=== PATIENT | female | born 1990 ===

== ENCOUNTER 2016-12-28 09:17 | Outpatient (CLI) | payer BC, MEDICAID ==
[~2016-12-28] VITALS: Ht 160 cm; Wt 57.7 kg
[2016-12-28 09:31] VITALS: BP 135/95; PULSE 95; TEMP 98.3
[2016-12-28] MEDS ORDERED: PRENATAL MVI (09:55)
[2016-12-28 10:00] VITALS: BP 138/90; PULSE 71; TEMP 98.3
[2016-12-28 10:30] VITALS: BP 124/84; PULSE 76
[2016-12-28 11:30] VITALS: BP 140/90; PULSE 82
[2016-12-28 12:30] VITALS: BP 116/75; PULSE 94
== END 2016-12-28 13:15 | disposition home or self-care (01) ==
LOC: LDRO 09:17
DX: O47.9 False labor, unspecified (principal)

== ENCOUNTER 2016-12-30 11:04 | Outpatient (CLI) | payer BC, MEDICAID ==
[~2016-12-30] VITALS: Ht 160 cm; Wt 57.7 kg
[~2016-12-30 11:04] MED LIST: PRENATAL MVI
[2016-12-30 11:10] VITALS: BP 125/82; PULSE 83; TEMP 98.1
[2016-12-30 11:14] VITALS: BP 125/82; PULSE 83; TEMP 98.1
[2016-12-30 12:15] VITALS: BP 118/85; PULSE 83
== END 2016-12-30 12:15 | disposition home or self-care (01) ==
LOC: LDRO 11:04
DX: Z34.03 Encounter for supervision of normal first pregnancy, third trimester (principal); Z3A.40 40 weeks gestation of pregnancy

== ENCOUNTER 2016-12-31 03:51 | Inpatient (IN) | payer BC, MEDICAID, OTHER ==
[~2016-12-31] VITALS: Ht 160 cm; Wt 57.7 kg
[2016-12-31] VITALS (49 sets, daily range): BP systolic 103–159; BP diastolic 51–95; PULSE 68–123; TEMP 97.9–100.3
[2016-12-31 05:30] LABS: BASO % 0.2 % (0.0-2.0); EOS # 0.1 (0.0-0.7); EOS % 0.4 % (0-4.0); GRAN # 8.3 (1.4-6.5); GRAN % 68.9 % (42.2-75.2); HEMATOCRIT 38.3 % (37.0-47.0); HEMOGLOBIN 13.1 g/dl (12.5-16.0); LYMPH # 2.8 (1.2-3.4); MEAN CELL VOLUME 92 fl (80.0-100.0); MEAN CORPUSCULAR HEMOGLOBIN 32 pg (27.0-31.0); MEAN CORPUSCULAR HGB CONC 34 g/dl (33.0-37.0); MEAN PLATELET VOLUME 12.8 fl (7.4-10.4); MONO # 0.8 (0.1-0.6); MONO % 6.9 % (1.7-9.3); PLATELET COUNT 158 K/mm3 (130-400); RED BLOOD COUNT 4.16 M/mm3 (4.10-5.30); WHITE BLOOD COUNT 12.1 K/mm3 (4.8-10.8)
[2017-01-01] VITALS: BP 126/81; PULSE 109; TEMP 98.2
[2017-01-01 03:46] VITALS: BP 131/97; PULSE 108; TEMP 98.2
[2017-01-01 08:28] VITALS: BP 113/73; PULSE 89; TEMP 98.3
[2017-01-01 20:00] VITALS: BP 119/68; PULSE 98; TEMP 98.5
[2017-01-02 08:14] VITALS: BP 117/56; PULSE 88; TEMP 98.5
[2017-01-02] MEDS ORDERED: PERCOCET 325 MG1 TA2 PO (09:27)
[2017-01-02] MEDS ORDERED: IBU600 MG PO (09:27)
== END 2017-01-02 17:45 | disposition home or self-care (01) | DRG 775 ==
LOC: LDRO 03:51 → LDR 04:20 → OB 04:20
PROVIDERS: Obstetrics & Gynecology
PROC: 10E0XZZ Delivery of Products of Conception, External Approach (ICD-10-PCS; principal; 2016-12-31)
PROC: 0KQM0ZZ Repair Perineum Muscle, Open Approach (ICD-10-PCS; 2016-12-31)
DX: O48.0 Post-term pregnancy (principal); O77.0 Labor and delivery complicated by meconium in amniotic fluid; O70.1 Second degree perineal laceration during delivery; Z3A.40 40 weeks gestation of pregnancy; Z37.0 Single live birth
CPT/HCPCS: J2590; J7120

== ENCOUNTER 2017-01-05 00:55 | Emergency (ER) | payer BC, MEDICAID ==
[~2017-01-05] VITALS: Ht 160 cm; Wt 52.3 kg
[~2017-01-05 00:55] MED LIST changes: +IBU600 MG PO; +PERCOCET 325 MG1 TA2 PO
[2017-01-05 00:57] VITALS: TEMP 98.5
[2017-01-05] MEDS ORDERED: LEXAPRO 10MG10 MG PO (01:01)
[2017-01-05 01:54] LABS: BASO % 0.2 % (0.0-2.0); EOS # 0.1 (0.0-0.7); EOS % 1.4 % (0-4.0); GRAN # 7.8 (1.4-6.5); GRAN % 75.9 % (42.2-75.2); HEMOGLOBIN 12.3 g/dl (12.5-16.0); LYMPH # 1.6 (1.2-3.4); LYMPH % 15.1 % (20.0-51.0); MEAN CELL VOLUME 91 fl (80.0-100.0); MEAN CORPUSCULAR HEMOGLOBIN 32 pg (27.0-31.0); MEAN CORPUSCULAR HGB CONC 35 g/dl (33.0-37.0); MEAN PLATELET VOLUME 10.6 fl (7.4-10.4); MONO # 0.7 (0.1-0.6); MONO % 6.9 % (1.7-9.3); PLATELET COUNT 221 K/mm3 (130-400); RED BLOOD COUNT 3.88 M/mm3 (4.10-5.30); REDCELL DISTRIBUTION WIDTH-CV 13.1 % (11.5-14.5); WHITE BLOOD COUNT 10.3 K/mm3 (4.8-10.8)
[2017-01-05 02:04] LABS: HEMATOCRIT 35.3 % (37.0-47.0)
[2017-01-05 02:27] LABS: ADJUSTED CALCIUM 9.6 mg/dL (8.4-10.2); BILIRUBIN,TOTAL 0.7 mg/dL (0.0-1.0); C-REACTIVE PROTEIN 1.7 mg/dL (0.0-0.9); CALCIUM 9.6 mg/dL (8.4-10.2); CREATININE, serum 0.55 mg/dL (0.52-1.25); POTASSIUM 3.5 mmol/L (3.4-5.0); TOTAL PROTEIN 7.2 gm/dL (6.4-8.2)
[2017-01-05 02:41] LABS: PH 9 (5-8); SQUAMOUS EPITHELIAL 0-2 /hpf; URINE APPEARANCE Clear; URINE BACTERIA None Seen /hpf; URINE BILIRUBIN Negative (NEGATIVE); URINE BLOOD 3+ (NEGATIVE); URINE COLOR Yellow; URINE GLUCOSE Negative (NEGATIVE); URINE KETONE Negative (NEGATIVE); URINE RBC 20-50 /hpf; URINE UROBILINOGEN Negative (NEGATIVE)
[2017-01-05 03:33] VITALS: BP 128/81
[2017-01-05] MEDS ORDERED: ZOFRAN ODT4 MG PO (04:32)
[2017-01-05] MEDS ORDERED: CEFTIN500 MG PO (04:32)
[2017-01-05 04:51] VITALS: PULSE 85
== END 2017-01-05 04:51 | disposition home or self-care (01) ==
LOC: COL.ER 00:55
PROVIDERS: Emergency Medicine
DX: O90.89 Other complications of the puerperium, not elsewhere classified (principal); R10.30 Lower abdominal pain, unspecified; R11.2 Nausea with vomiting, unspecified; O86.89 Other specified puerperal infections; N39.0 Urinary tract infection, site not specified
CPT/HCPCS: J0696; J2270; J2405; J2550; J3010; J7030